=== PATIENT | male | born 1960 | race Caucasian/White ===

== ENCOUNTER 2016-12-13 10:58 | Inpatient (IN) | payer BC ==
[2016-12-13] MEDS ORDERED: NORMAL SALINE 1000 ML 1,000 ML IV ONE ×2 (11:24→12:51)
[2016-12-13] MEDS ORDERED: ONDANSETRON 4 MG TAB.RAPDIS PO ONE (11:24)
--- NOTE | 2016-12-13 11:28 | ER Document Report ---
ED Medical Screen (RME) - General Stated Complaint: STOMACH PAIN Mode of Arrival: Ambulatory Information source: Patient Notes: 56-year-old male presents to the emergency department complaining of nausea/ vomiting/diarrhea and generalized abdominal pain since yesterday evening. Denies measured temperature, blood in emesis or stool. I have greeted and performed a rapid initial assessment of this patient. A comprehensive ED assessment and evaluation of the patient, analysis of test results and completion of the medical decision making process will be conducted by additional ED providers. TRAVEL OUTSIDE OF THE [place] IN LAST 30 DAYS: No - Related Data Allergies/Adverse Reactions: No Known Allergies Allergy (Unverified 08/24/16 12:22) Past Medical History - Social History Frequency of alcohol use: Social Drug Abuse: None Renal/ Medical History: Denies: Hx Peritoneal Dialysis Past Surgical History: Reports: Hx Orthopedic Surgery - Chadwick Sx Physical Exam - Vital signs Vitals: Temp Pulse Resp BP Pulse Ox 99.1 F 131 H 16 101/60 96 12/13/16 11:19 12/13/16 11:19 12/13/16 11:19 12/13/16 11:19 12/13/16 11:19 - General General appearance: Alert In distress: None Course - Vital Signs Vital signs: Temp Pulse Resp BP Pulse Ox 99.1 F 131 H 16 101/60 96 12/13/16 11:19 12/13/16 11:19 12/13/16 11:19 12/13/16 11:19 12/13/16 11:19
[2016-12-13 11:58] LABS: HEMATOCRIT 41.4 % (37.9-51.0); HEMOGLOBIN 13.6 g/dL (13.5-17.0); HGB HCT DIFFERENCE -0.6; MEAN CORPUSCULAR HEMOGLOBIN 30.5 pg (27.0-33.4); MEAN CORPUSCULAR HGB CONC 32.9 g/dL (32.0-36.0); MEAN CORPUSCULAR VOLUME 93 fl (80-97); RED BLOOD COUNT 4.47 10^6/uL (4.35-5.55)
[2016-12-13 12:14] LABS: BAND NEUTROPHILS % (MANUAL) 6 % (3-5); BASOPHILS % (MANUAL) 0 % (0-2); EOSINOPHILS % (MANUAL) 0 % (0-6); LYMPHOCYTES % (MANUAL) 1 % (13-45); TOTAL CELLS COUNTED 100
[2016-12-13 12:15] LABS: RBC MORPHOLOGY COMMENT NORMO-CYTIC/CHROMIC; TOXIC GRANULATION SLIGHT
[2016-12-13 12:17] LABS: ALANINE AMINOTRANSFERASE 17 U/L (21-72); ALBUMIN 3.6 g/dL (3.5-5.0); ALKALINE PHOSPHATASE 110 U/L (38-126); ANION GAP 15 (5-19); ASPARTATE AMINO TRANSFERASE 22 U/L (17-59); BILIRUBIN,TOTAL 1.1 mg/dL (0.2-1.3); BLOOD UREA NITROGEN 26 mg/dL (7-20); CALCIUM 9.4 mg/dL (8.4-10.2); CARBON DIOXIDE 21 mmol/L (22-30); CHLORIDE 104 mmol/L (98-107); CREATININE RESULT 1.27 mg/dL (0.52-1.25); GLUCOSE 128 mg/dL (75-110); LIPASE 30.9 U/L (23-300); POTASSIUM 4.4 mmol/L (3.6-5.0); SODIUM 140.1 mmol/L (137-145); TOTAL PROTEIN 6.6 g/dL (6.3-8.2)
[2016-12-13 12:18] LABS: WHITE BLOOD COUNT 42.8 10^3/uL (4.0-10.5)
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
[2016-12-13] MEDS ORDERED: ONDANSETRON HCL INJ/PF 4 MG/2 ML SDV IV ONE ×2 (12:51→17:15)
[2016-12-13] MEDS ORDERED: NORMAL SALINE 1000 ML 3,000 ML IV ONE (14:57)
[2016-12-13] MEDS ORDERED: ACETAMINOPHEN 325 MG TABLET PO PRN (14:58)
[2016-12-13] MEDS ORDERED: ONDANSETRON HCL INJ/PF 4 MG/2 ML SDV IV PRN (14:58)
[2016-12-13] MEDS ORDERED: OXYCODONE-ACETAMINOPHEN 5-325 MG TABLET PO PRN (14:58)
[2016-12-13 15:37] LABS: MAGNESIUM 1.6 mg/dL (1.6-2.3); PHOSPHORUS 3.3 mg/dL (2.5-4.5)
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
[2016-12-13 15:38] LABS: PROTHROMBIN TIME 13.8 SEC (11.4-15.4)
[2016-12-13 15:45] LABS: APPEARANCE,URINE SLIGHTLY-CLOUDY; BILIRUBIN,URINE NEGATIVE (NEGATIVE); GLUCOSE, URINE NEGATIVE (NEGATIVE); KETONES,URINE NEGATIVE (NEGATIVE); LEUKOCYTE ESTERASE,URINE NEGATIVE (NEGATIVE); NITRITE,URINE NEGATIVE (NEGATIVE); PROTEIN,URINE 100 mg/dL (NEGATIVE); URINE SPECIFIC GRAVITY 1.023; UROBILINOGEN,URINE NEGATIVE mg/dL (<2.0)
[2016-12-13 16:02] LABS: URINE BARBITURATES SCREEN NEGATIVE; URINE METHADONE SCREEN NEGATIVE; URINE PHENCYCLIDINE SCREEN NEGATIVE
[2016-12-13] MEDS ORDERED: ONDANSETRON HCL INJ/PF 4 MG/2 ML SDV ONE (16:35)
[2016-12-13] MEDS ORDERED: MAG HYDROX/AL HYDROX/SIMETH SUSP 30 ML UDCUP PO ONE (17:00)
[2016-12-13] MEDS ORDERED: METOCLOPRAMIDE HCL ORAL SOLN 10 MG/10 ML UDCUP PO ONE (17:00)
[2016-12-13] MEDS ORDERED: LIDOCAINE 2% VISCOUS SOLN 20 ML UDCUP PO ONE (17:15)
[2016-12-13] MEDS: METRONIDAZOLE 500 MG/NS RTU 100 ML IV SCH (18:16)
[2016-12-13] MEDS: VANCOMYCIN HCL INJ 500 MG VIAL PO SCH (18:41)
[2016-12-13] MEDS: MAGNESIUM SULFATE/D5W 100 ML IV SCH ×2 (19:00→19:30)
[2016-12-13] MEDS: FAMOTIDINE 20 MG TABLET PO SCH (21:05)
[2016-12-14] MEDS: MAGNESIUM SULFATE/D5W 1 GM/100 ML RTUPB IV SCH ×2 (00:05→03:24)
[2016-12-14] MEDS ORDERED: VANCOMYCIN HCL INJ 500 MG VIAL ONE (01:54)
[2016-12-14] MEDS: VANCOMYCIN HCL INJ 500 MG VIAL PO SCH ×5 (02:11→23:26)
[2016-12-14] MEDS: METRONIDAZOLE 500 MG/NS RTU 100 ML IV SCH ×5 (02:12→23:26)
[2016-12-14 05:42] LABS: HEMATOCRIT 34.5 % (37.9-51.0); HGB HCT DIFFERENCE -1.2; MEAN CORPUSCULAR HEMOGLOBIN 30.2 pg (27.0-33.4); MEAN CORPUSCULAR HGB CONC 32.2 g/dL (32.0-36.0); MEAN CORPUSCULAR VOLUME 94 fl (80-97); RED BLOOD COUNT 3.68 10^6/uL (4.35-5.55); RED CELL DISTRIBUTION WIDTH 14.4 % (11.5-14.0); WHITE BLOOD COUNT 25.4 10^3/uL (4.0-10.5)
[2016-12-14 05:53] LABS: ANION GAP 14 (5-19); BLOOD UREA NITROGEN 19 mg/dL (7-20); CALCIUM 8.4 mg/dL (8.4-10.2); CARBON DIOXIDE 19 mmol/L (22-30); CHLORIDE 104 mmol/L (98-107); CREATININE RESULT 0.99 mg/dL (0.52-1.25); GLUCOSE 129 mg/dL (75-110); PHOSPHORUS 3.1 mg/dL (2.5-4.5); POTASSIUM 3.9 mmol/L (3.6-5.0); SODIUM 137.1 mmol/L (137-145)
[2016-12-14 06:18] LABS: BAND NEUTROPHILS % (MANUAL) 4 % (3-5); BASOPHILS % (MANUAL) 0 % (0-2); EOSINOPHILS % (MANUAL) 0 % (0-6); LYMPHOCYTES % (MANUAL) 4 % (13-45); TOTAL CELLS COUNTED 100
[2016-12-14 06:20] LABS: ANISOCYTOSIS SLIGHT; TOXIC GRANULATION SLIGHT; TOXIC VACUOLATION PRESENT
[2016-12-14 06:21] LABS: HEMOGLOBIN 11.1 g/dL (13.5-17.0)
[2016-12-14 08:59] LABS: FREE T3 2.9 pg/mL (2.77-5.27)
[2016-12-14] MEDS: FAMOTIDINE 20 MG TABLET PO SCH (09:39)
[2016-12-14] MEDS: ENOXAPARIN SODIUM INJ 40 MG/0.4 ML DISP.SYRIN SUBCUT SCH (09:39)
[2016-12-14] MEDS ORDERED: ALPRAZOLAM 0.25 MG TABLET PO PRN (11:22)
[2016-12-14] MEDS ORDERED: LANSOPRAZOLE 30 MG TAB.RAP.DR PO ONE ×2 (12:30→17:00)
[2016-12-14] MEDS ORDERED: MAG HYDROX/AL HYDROX/SIMETH SUSP 30 ML UDCUP PO ONE (13:00)
[2016-12-14] MEDS ORDERED: LIDOCAINE 2% VISCOUS SOLN 20 ML UDCUP PO ONE (13:00)
[2016-12-14] MEDS ORDERED: METOCLOPRAMIDE HCL ORAL SOLN 10 MG/10 ML UDCUP PO ONE (13:00)
[2016-12-14] MEDS ORDERED: FLUCONAZOLE 400 MG/NS RTU 200 ML IV ONE (14:08)
--- NOTE | 2016-12-14 14:27 | PDOC PROGRESS REPORT ---
Subjective Progress Note for:: 12/14/16 Subjective:: Patient complains of indigestion. He reports his appetite is still poor and that he still has nausea. Nursing reports patient has only had 1 stool since last night. Patient denies chest pain, shortness of breath, abdominal pain, vomiting, fevers, chills, constipation, headache, new onset weakness. Physical Exam Vital Signs: Temp Pulse Resp BP Pulse Ox 99.0 F 105 H 19 94/57 L 97 12/14/16 07:50 12/14/16 07:50 12/14/16 07:50 12/14/16 07:50 12/14/16 07:50 Intake & Output 12/13/16 12/14/16 12/15/16 06:59 06:59 06:59 Intake Total 834 Balance 834 Weight 81.2 kg Exam: General: Ill-appearing, Awake, alert, and oriented x3, no acute respiratory distress HEENT: AT/NC, PERRL, EOMI, oropharynx is moist, pink, no scleral icterus, no conjunctival injection Neck: No JVD, trachea midline Chest: Clear to auscultation bilaterally, no wheezes rhonchi or rales CV: Regular rate and rhythm, normal S1 and S2, no rub or gallop; 3/6 pansystolic murmur best heard over apex Abdomen: Soft, nontender to palpation, mildly distended, active bowel sounds; no rebound, rigidity, or guarding Extremities: No cyanosis, clubbing or edema Neuro: Cranial nerves II through XII are grossly intact without focal deficits; awake alert and oriented x3 Psych: Normal mood and affect Skin: No rashes or lesions Results Laboratory Results: 12/14/16 04:19 12/14/16 04:19 12/13/16 12/13/16 12/13/16 15:30 18:10 18:10 WBC RBC Hgb Hct MCV MCH MCHC RDW Plt Count Seg Neutrophils % Lymphocytes % Monocytes % Eosinophils % Basophils % Absolute Neutrophils Absolute Lymphocytes Absolute Monocytes Absolute Eosinophils Absolute Basophils Sodium Potassium Chloride Carbon Dioxide Anion Gap BUN Creatinine Est GFR ( Amer) Est GFR (Non-Af Amer) Glucose Lactic Acid Calcium Phosphorus Magnesium Free T4 Free T3 pg/mL Urine Color YELLOW Urine Appearance SLIGHTLY-CLOUDY Urine pH 5.0 Ur Specific [place] 1.023 Urine Protein 100 H Urine Glucose (UA) NEGATIVE Urine Ketones NEGATIVE Urine Blood NEGATIVE Urine Nitrite NEGATIVE Ur Leukocyte Esterase NEGATIVE Urine WBC (Auto) 3 Urine RBC (Auto) 1 Stool Occult Blood POSITIVE Stool for White Cells MANY H 12/13/16 12/14/16 12/14/16 18:15 04:19 04:19 WBC 25.4 H RBC 3.68 L Hgb 11.1 L D Hct 34.5 L MCV 94 MCH 30.2 MCHC 32.2 RDW 14.4 H Plt Count 175 Seg Neutrophils % Not Reportable Lymphocytes % Not Reportable Monocytes % Not Reportable Eosinophils % Not Reportable Basophils % Not Reportable Absolute Neutrophils Not Reportable Absolute Lymphocytes Not Reportable Absolute Monocytes Not Reportable Absolute Eosinophils Not Reportable Absolute Basophils Not Reportable Sodium 137.1 Potassium 3.9 Chloride 104 Carbon Dioxide 19 L Anion Gap 14 BUN 19 Creatinine 0.99 Est GFR ( Amer) > 60 Est GFR (Non-Af Amer) > 60 Glucose 129 H Lactic Acid 3.5 H Calcium 8.4 Phosphorus 3.1 Magnesium 2.0 Free T4 Free T3 pg/mL Urine Color Urine Appearance Urine pH Ur Specific [place] Urine Protein Urine Glucose (UA) Urine Ketones Urine Blood Urine Nitrite Ur Leukocyte Esterase Urine WBC (Auto) Urine RBC (Auto) Stool Occult Blood Stool for White Cells 12/14/16 04:19 WBC RBC Hgb Hct MCV MCH MCHC RDW Plt Count Seg Neutrophils % Lymphocytes % Monocytes % Eosinophils % Basophils % Absolute Neutrophils Absolute Lymphocytes Absolute Monocytes Absolute Eosinophils Absolute Basophils Sodium Potassium Chloride Carbon Dioxide Anion Gap BUN Creatinine Est GFR ( Amer) Est GFR (Non-Af Amer) Glucose Lactic Acid Calcium Phosphorus Magnesium Free T4 0.81 Free T3 pg/mL 2.90 Urine Color Urine Appearance Urine pH Ur Specific [place] Urine Protein Urine Glucose (UA) Urine Ketones Urine Blood Urine Nitrite Ur Leukocyte Esterase Urine WBC (Auto) Urine RBC (Auto) Stool Occult Blood Stool for White Cells 12/13/16 17:55 Sputum Gram Stain - Final 12/13/16 17:55 Sputum Sputum Culture - Final Impressions: Abdomen/Pelvis CT 12/13/16 00:00 IMPRESSION: 1. Findings suggesting colitis, particularly proximally. Infectious and inflammatory etiologies should be considered primarily. Assessment & Plan - Diagnosis (1) Severe sepsis Is this a current diagnosis for this admission?: YesPlan: Patient meets criteria for severe sepsis with his initial white count of 42.8, lactate of 2.7, and heart rate of 131. Patient has sepsis secondary to C. difficile colitis. (2) C. difficile colitis Is this a current diagnosis for this admission?: YesPlan: Continue patient on IV Flagyl and oral Vancocin. Patient meets criteria for dual antibiotic therapy secondary to severe sepsis. Advance diet as tolerated. (3) Prediabetes Is this a current diagnosis for this admission?: YesPlan: Hemoglobin A1c done was found to be 5.9. Patient in the prediabetic range. (4) MRSA osteomyelitis Is this a current diagnosis for this admission?: NoPlan: Patient has history of MRSA osteomyelitis and we have requested outside records. For this, he was on multiple courses of oral and IV antibiotics. Currently no signs of infection. - Time Time Spent with patient: 25-34 minutes Medications reviewed and adjusted accordingly: Yes
[2016-12-14] MEDS: LANSOPRAZOLE 30 MG TAB.RAP.DR PO SCH (17:13)
[2016-12-14] MEDS: LACTOBACILLUS ACIDOPHILUS 250 MG TAB PO SCH (17:13)
[2016-12-15] MEDS ORDERED: DILTIAZEM HCL/D5W 125 ML IV PRN (01:59)
[2016-12-15] MEDS ORDERED: DILTIAZEM HCL/D5W 125 MG/125 ML RTUINJ IV ONE (02:04)
[2016-12-15] MEDS ORDERED: DILTIAZEM HCL INJ 25 MG/5 ML VIAL ONE (02:04)
[2016-12-15 02:29] LABS: ANION GAP 8 (5-19); BLOOD UREA NITROGEN 14 mg/dL (7-20); CALCIUM 8.3 mg/dL (8.4-10.2); CARBON DIOXIDE 24 mmol/L (22-30); CHLORIDE 105 mmol/L (98-107); CREATININE RESULT 0.93 mg/dL (0.52-1.25); GLUCOSE 103 mg/dL (75-110); MAGNESIUM 1.7 mg/dL (1.6-2.3); POTASSIUM 3.6 mmol/L (3.6-5.0); SODIUM 136.6 mmol/L (137-145)
[2016-12-15] MEDS ORDERED: DILTIAZEM HCL INJ 25 MG/5 ML VIAL IV ONE (02:30)
[2016-12-15 02:45] LABS: CREATINE KINASE MB < 0.22 ng/mL (<4.55); TROPONIN I < 0.012 ng/mL
[2016-12-15 02:51] LABS: HEMATOCRIT 32.2 % (37.9-51.0); HEMOGLOBIN 10.7 g/dL (13.5-17.0); HGB HCT DIFFERENCE -0.1; MEAN CORPUSCULAR HEMOGLOBIN 30.8 pg (27.0-33.4); MEAN CORPUSCULAR HGB CONC 33.3 g/dL (32.0-36.0); MEAN CORPUSCULAR VOLUME 93 fl (80-97); RED BLOOD COUNT 3.48 10^6/uL (4.35-5.55); RED CELL DISTRIBUTION WIDTH 14.3 % (11.5-14.0); WHITE BLOOD COUNT 16.2 10^3/uL (4.0-10.5)
[2016-12-15 02:53] LABS: BAND NEUTROPHILS % (MANUAL) 1 % (3-5); BASOPHILS % (MANUAL) 0 % (0-2); EOSINOPHILS % (MANUAL) 1 % (0-6); LYMPHOCYTES % (MANUAL) 1 % (13-45); TOTAL CELLS COUNTED 100
[2016-12-15 02:56] LABS: ANISOCYTOSIS SLIGHT; OVALOCYTES SLIGHT; TOXIC GRANULATION SLIGHT; TOXIC VACUOLATION PRESENT
[2016-12-15] MEDS ORDERED: NORMAL SALINE 1000 ML 1,000 ML IV ONE (06:45)
[2016-12-15] MEDS: VANCOMYCIN HCL INJ 500 MG VIAL PO SCH ×4 (07:05→23:34)
[2016-12-15] MEDS: LANSOPRAZOLE 30 MG TAB.RAP.DR PO SCH (07:06)
[2016-12-15] MEDS: METRONIDAZOLE 500 MG/NS RTU 100 ML IV SCH ×4 (07:09→23:33)
--- NOTE | 2016-12-15 09:47 | PDOC PROGRESS REPORT ---
Subjective Progress Note for:: 12/15/16 Subjective:: Patient has no new complaints. He was noted by overnight physician Dr. Hernandez to go into atrial fibrillation with rapid ventricular response. He was started on Cardizem drip. He was also given 1 L of IV fluid bolus. He continues to be some slightly tachycardic. Patient states that he has a history of atrial fibrillation since having mitral valve repair and [place] years ago. He was on metoprolol for heart rate control but has not been taking this medication since moving to the area. He has also been on anticoagulation in the past but declines restarting this medication. He states that ultimately he was just placed on aspirin 81 mg daily by his grey goods tester in [place]. Patient denies fever, chills, headache, new focal weakness, chest pain, shortness of breath, abdominal pain, nausea, vomiting, diarrhea, constipation. Physical Exam Vital Signs: Temp Pulse Resp BP Pulse Ox 98.4 F 86 18 98/64 L 100 12/15/16 03:59 12/15/16 08:00 12/15/16 03:59 12/15/16 08:01 12/15/16 03:59 Intake & Output 12/14/16 12/15/16 12/16/16 06:59 06:59 06:59 Intake Total 834 2715 Balance 834 2715 Weight 81.2 kg 81.1 kg GENERAL: No acute distress HEENT: Conjunctiva clear, nonicteric, moist mucous membranes, no JVD, midline trachea RESPIRATORY: Clear to auscultation bilaterally, no wheezes, no rhonchi CARDIAC: Irregular/tachycardic ABDOMEN: Soft, nondistended, nontender, positive bowel sounds, no rebound, no guarding EXTREMETIES: No edema, cyanosis, clubbing NEUROLOGIC: Alert, oriented to person/place/time, CN's grossly intact, no focal deficits SKIN: No rash, wounds PSYCH: Normal mood, normal affect Results Laboratory Results: 12/15/16 02:08 12/15/16 02:08 12/15/16 12/15/16 02:08 02:08 WBC 16.2 H RBC 3.48 L Hgb 10.7 L Hct 32.2 L MCV 93 MCH 30.8 MCHC 33.3 RDW 14.3 H Plt Count 157 Seg Neutrophils % Not Reportable Lymphocytes % Not Reportable Monocytes % Not Reportable Eosinophils % Not Reportable Basophils % Not Reportable Absolute Neutrophils Not Reportable Absolute Lymphocytes Not Reportable Absolute Monocytes Not Reportable Absolute Eosinophils Not Reportable Absolute Basophils Not Reportable Sodium 136.6 L Potassium 3.6 Chloride 105 Carbon Dioxide 24 Anion Gap 8 BUN 14 Creatinine 0.93 Est GFR ( Amer) > 60 Est GFR (Non-Af Amer) > 60 Glucose 103 Calcium 8.3 L Magnesium 1.7 12/13/16 17:55 Sputum Gram Stain - Final 12/13/16 17:55 Sputum Sputum Culture - Final 12/15/16 12/15/16 02:08 02:08 Creatine Kinase < 20 L CK-MB (CK-2) < 0.22 Troponin I < 0.012 Impressions: Abdomen/Pelvis CT 12/13/16 00:00 IMPRESSION: 1. Findings suggesting colitis, particularly proximally. Infectious and inflammatory etiologies should be considered primarily. Assessment & Plan - Diagnosis (1) Severe sepsis Is this a current diagnosis for this admission?: YesPlan: Secondary to C. difficile colitis. White blood count improving. Patient's afebrile. (2) C. difficile colitis Is this a current diagnosis for this admission?: YesPlan: Continue oral vancomycin and IV Flagyl for now. (3) Atrial fibrillation with rapid ventricular response Is this a current diagnosis for this admission?: YesPlan: Patient states that he has a history of atrial fibrillation since having mitral valve repair and [place] years ago. He was on metoprolol for heart rate control but has not been taking this medication since moving to the area. He has also been on anticoagulation in the past but declines restarting this medication. He states that ultimately he was just placed on aspirin 81 mg daily by his grey goods tester in [place]. Start Toprol-XL 50 mg daily. Wean off Cardizem drip as tolerated. Consult cardiology. Repeat EKG in the morning. Continue to monitor on telemetry. Start aspirin 81 mg daily. Patient declines anticoagulation and I don't think for anticoagulation would be a good idea at this time given active colitis. (4) MRSA osteomyelitis Is this a current diagnosis for this admission?: YesPlan: This is been treated. Likely antibiotics used to treat this in October were associated with current C. difficile colitis. - Time Time Spent with patient: 35 or more minutes Anticipated discharge: Home - Inpatient Certification Medical Necessity: Need For Continuous Telemetry Monitoring, Need for IV Antibiotics
[2016-12-15] MEDS: ASPIRIN 81 MG TABLET, ENT COATED PO SCH (10:50)
[2016-12-15] MEDS: METOPROLOL SUCCINATE 50 MG TAB.SR.24H PO SCH (10:50)
[2016-12-15] MEDS: ENOXAPARIN SODIUM INJ 40 MG/0.4 ML DISP.SYRIN SUBCUT SCH (10:50)
[2016-12-15] MEDS: LACTOBACILLUS ACIDOPHILUS 250 MG TAB PO SCH ×2 (10:50→17:38)
--- NOTE | 2016-12-15 11:44 | EKG REPORT ---
SEVERITY:- ABNORMAL ECG - ATRIAL FIBRILLATION, V-RATE [id number] : Confirmed by: Kendal Jarrell MD 15-Dec-2016 11:44:20
--- NOTE | 2016-12-15 12:55 | PDOC CONSULTATION ---
Consultation Consult Date: 12/15/16 Attending physician:: PO LOWE Consult reason:: Atrial fibrillation, history of valvular heart disease History of Present Illness Admission Date/PCP: 12/13/16 14:58 History of Present Illness: SOHAIL PATTEN is a 56 year old male who presents to the emergency department with general feelings of malaise. He reports that approximately 4 weeks ago the week before [place] he began having diarrhea. He scheduled for a colonoscopy. He reports over the last week worsening with subjective fever and chills. He has had a slight cough which is nonproductive of any sputum and some clear to white sinus drainage. Patient has a history of MRSA infection of the leg which he was on antibiotics for until the first week of October. These included Cipro, Bactrim, and amoxicillin. Patient reports that he's been having 3-4 bowel movements daily but had some return to normalcy with while on antibiotics which included he believed both Cipro and Flagyl. He reports that he has foul-smelling stools that are nonbloody but had some streaking from a hemorrhoid. He reports significant nausea and vomiting today. He is referred to this hospital service for SIRS and colitis. While being in the hospital he was noted to have atrial fibrillation with somewhat rapid ventricular response and one 4 beat run of wide-complex tachycardia. Patient gives history of paroxysmal atrial fibrillation. He also gives history of valvular heart disease having had a mitral valve ring repair approximately 2 years ago. Past Medical History Cardiac Medical History: Reports: Heart Murmur Psychiatric Medical History: Denies: Depression Infectious Medical History: Reports: Methicillin-Resistant Staph Aureus Past Surgical History Past Surgical History: Reports: Orthopedic Surgery - [place] Sx, Other - Mitral valve repair, with ring annuloplasty Social History Lives with: Family Smoking Status: Current Some Day Smoker Frequency of Alcohol Use: Occasional Hx Recreational Drug Use: No Drugs: None Hx Prescription Drug Abuse: No - Advance Directive Resuscitation Status: Full Code Family History Family History: Reviewed & Not Pertinent Parental Family History Reviewed: Yes Children Family History Reviewed: Yes Sibling(s) Family History Reviewed.: Yes - Negative for premature coronary artery disease or sudden cardiac in the family amongst first degree relatives. Medication/Allergy Home Medications: Acetaminophen [Tylenol 325 mg Tablet] 650 mg PO Q4HP PRN tablet 12/16/16 Aspirin [Ecotrin 81 mg EC Tablet] 81 mg PO DAILY tabec 12/16/16 Metoprolol Succinate [Toprol Xl 50 mg Tab.sr] 50 mg PO DAILY #30 tab.sr.24h Multivitamin W/Iron, Minerals [Compete] 1 each PO DAILY #30 tablet 12/16/16 Vancomycin HCl 250 mg PO Q6H #56 capsule 12/16/16 Allergies/Adverse Reactions: No Known Allergies Allergy (Unverified 08/24/16 12:22) Review of Systems Review of Systems: Please see history of present illness and past medical history as wall. Constitutional: Low-grade fever, fatigue and tiredness reported Head : No recent chronic headaches, recent head injury. Eyes: No recent eye pain, diplopia, redness, discharge, acute visual changes. Ears: No recent chronic ear pain, acute hearing loss, ear discharge. Oral cavity: No recent ulcerations, bleeding, oral cavity discomfort. Neck: No recent acute neck pain reported. Hematologic: No recent easy bruising or bleeding or hematologic malignancy reported. Lymphatic: No recent lymphatic malignancy, chronic lymphadenopathy reported yet Cardiovascular system review: See history of present illness. Respiratory system review: No recent chronic cough, hemoptysis, blood clots in the lungs reported. Mild Shortness of breath on exertion Gastrointestinal system review: Negative for any recent acute or chronic abdominal pain, hematemesis, melena, noted chronic diarrhea. Genitourinary system review: No recent acute or chronic hematuria, flank pain, UTI etc. reported. Skin system review: Negative for any recent abnormal bruising, no rash, no pruritus reported. Neurologic: No prior history of strokes, mini strokes, seizure disorder. Psychologic: No history of major psychosis or depression reported. Musculoskeletal: Minor aches and pains reported. No acute joint swelling reported. Endocrine: No recent polyuria, polydipsia, recent heat or cold intolerance. Physical Exam Vital Signs: Temp Pulse Resp BP Pulse Ox 98.5 F 75 20 95/59 L 97 12/15/16 11:33 12/15/16 11:33 12/15/16 11:33 12/15/16 11:01 12/15/16 11:33 Intake & Output 12/14/16 12/15/16 12/16/16 06:59 06:59 06:59 Intake Total 834 2715 Balance 834 2715 Weight 81.2 kg 81.1 kg Exam: GENERAL: well-nourished and in no acute distress. Alert and oriented x3 HEAD: Atraumatic, normocephalic. EYES: Pupils equal round and reactive to light, extraocular movements intact, sclera anicteric, conjunctiva are normal. ENT: TMs normal, nares patent, oropharynx clear without exudates. Moist mucous membranes. No oral ulcerations or bleeding gums noted NECK: supple without lymphadenopathy. Trachea is central. No cervical or axillary lymphadenopathy noted. Carotids are 2+, JVD WNL LUNGS: Respiration seems nonlabored, no significant accessory muscle action noted. Breath sounds clear to auscultation bilaterally and equal. No wheezes rales or rhonchi. No significant dullness noted on percussion. CHEST: Palpation of the chest wall shows no significant chest wall tenderness or abnormalities. HEART: [place] MD ALLERGY IMMUNOLOGY, No PSH, 1/6 HUSSAIN aortic area, 1/6 cat systolic murmur mitral area, no rubs, no gallops. ABDOMEN: Soft, no significant tenderness appreciated, normoactive bowel sounds. No guarding, no rebound. No rigidity noted . No masses appreciated. EXTREMITIES: Pedal pulses are 1-2+, no calf tenderness noted. No clubbing or cyanosis.trace pedal edema noted. A scar of multiple surgeries noted on the left lower extremity. NEUROLOGICAL: Focused neurological exam showed no significant neurologic deficit. Normal speech, no focal weakness appreciated. PSYCH: Normal mood, normal affect. Judgment and insight within normal limits. SKIN: No significant ecchymosis, rash, ulcerations or signs of pruritus noted. MUSCULOSKELETAL EXAM: No significant joint swelling noted. Results Laboratory Results: 12/15/16 02:08 12/15/16 02:08 12/15/16 12/15/16 02:08 02:08 WBC 16.2 H RBC 3.48 L Hgb 10.7 L Hct 32.2 L MCV 93 MCH 30.8 MCHC 33.3 RDW 14.3 H Plt Count 157 Seg Neutrophils % Not Reportable Lymphocytes % Not Reportable Monocytes % Not Reportable Eosinophils % Not Reportable Basophils % Not Reportable Absolute Neutrophils Not Reportable Absolute Lymphocytes Not Reportable Absolute Monocytes Not Reportable Absolute Eosinophils Not Reportable Absolute Basophils Not Reportable Sodium 136.6 L Potassium 3.6 Chloride 105 Carbon Dioxide 24 Anion Gap 8 BUN 14 Creatinine 0.93 Est GFR ( Amer) > 60 Est GFR (Non-Af Amer) > 60 Glucose 103 Calcium 8.3 L Magnesium 1.7 12/13/16 17:55 Sputum Gram Stain - Final 12/13/16 17:55 Sputum Sputum Culture - Final 12/15/16 12/15/16 02:08 02:08 Creatine Kinase < 20 L CK-MB (CK-2) < 0.22 Troponin I < 0.012 EKG Comments: EKG obtained earlier this morning shows atrial fibrillation but on rhythm strip this morning he was noted to be back in sinus rhythm Impressions: Abdomen/Pelvis CT 12/13/16 00:00 IMPRESSION: 1. Findings suggesting colitis, particularly proximally. Infectious and inflammatory etiologies should be considered primarily. Assessment & Plan - Diagnosis (1) Atrial fibrillation with rapid ventricular response Is this a current diagnosis for this admission?: YesPlan: Currently patient in sinus rhythm. Patient has history of valvular heart disease. Patient has been recommended to chronic anticoagulation but she declines to pursue it. Precipitating cause of atrial fibrillation probably sepsis, underlying sleep apnea syndrome etc. Patient does give history of paroxysmal atrial fibrillation in the past. At this point agree with Cardizem therapy. (2) C. difficile colitis Is this a current diagnosis for this admission?: YesPlan: Continue therapy for C. difficile colitis as you were doing (3) History of mitral valve repair Is this a current diagnosis for this admission?: YesPlan: Patient had annuloplasty ring repair of the mitral valve. In view of paroxysmal atrial fibrillation would repeat a 2-D echocardiogram (4) Systemic inflammatory response syndrome Is this a current diagnosis for this admission?: YesPlan: Most likely related to C. difficile colitis. This is improving. (5) Sleep disorder breathing Is this a current diagnosis for this admission?: YesPlan: Patient gives history of snoring. In view of paroxysmal atrial fibrillation, I have recommended a sleep study. This can be performed as an outpatient. (6) Mitral valve disorder Is this a current diagnosis for this admission?: YesPlan: This is strongly suspected based on development of paroxysmal atrial fibrillation. We will order an echocardiogram and look for any mitral stenosis or mitral regurgitation as cause of atrial fibrillation. Patient is status post mitral valve ring repair. - Notes Notes: CODE STATUS was discussed, patient remains full code. Surrogate decision-maker patient's . Multiple medical problems were addressed. - Time Time Spent: 30 to 50 Minutes - More than 50% of the time spent coordinating care , discussing management plans with involved caregivers. Management plans discussed with involved personnels. Medical decision making was of moderate complexity. Medications reviewed and adjusted accordingly: Yes
--- NOTE | 2016-12-15 20:15 | XCELERA REPORT ---
[address] [address] Transthoracic Echocardiogram Report Name: SOHAIL PATTEN Age: 56 yrs Gender: Male : 1960 Patient Status: Inpatient Patient Location: [id number]\S\322\S\A Study Date: 12/15/2016 01:32 PM Height: 69 in Weight: 178 lb BSA: 2.0 m2 Procedure: A complete two-dimensional transthoracic echocardiogram was performed (2D, M-mode, spectral and color flow Doppler). The study was technically difficult with many images being suboptimal in quality. Reason For Study: atrial fibrillation Ordering Physician: ELIZA JAVIER Performed By: Khalida Wellington Interpretation Summary The left ventricular ejection fraction is normal. Doppler measurements suggest pseudonormalized left ventricular relaxation, which is associated with grade II/IV or mild to moderate diastolic dysfunction There is normal left ventricular wall thickness. The left ventricle is grossly normal size. Regional wall motion abnormalities cannot be excluded due to limited visualization. The right ventricular systolic function is normal. The right atrium is normal. The left atrial size is normal. There is a trace amount of mitral regurgitation An annuloplasty ring is noted in the mitral position. There is a trace amount of aortic regurgitation There is no aortic valve stenosis There is a trace or physiologic amount of tricuspid regurgitation Tricuspid regurgitation jet envelope not well defined to measure RV systolic pressure accurately. There is no tricuspid stenosis. There is no pericardial effusion. MMode/2D Measurements \T\ Calculations RVDd: 3.0 cm LVIDd: 4.5 cm FS: 34.8 % Ao root diam: 3.3 cm IVSd: 0.93 cm LVIDs: 2.9 cm EDV(Teich): 92.5 ml LVPWd: 0.93 cmESV(Teich): 33.2 ml Ao root area: 8.6 cm2 EF(Teich): 64.1 % LA dimension: 4.4 cm LVOT diam: 2.1 cm LVOT area: 3.4 cm2 Doppler Measurements \T\ Calculations MV E max charles: MV P1/2t max charles: Ao V2 max: LV V1 max P.8 cm/sec 172.1 cm/sec 123.8 cm/sec 4.9 mmHg MV A max charles: MV P1/2t: 50.4 msec Ao max PG: LV V1 max: 97.5 cm/sec MVA(P1/2t): 4.4 cm2 6.1 mmHg 111.1 cm/sec MV E/A: 1.8 MV dec slope: RAMSES(V,D): 3.0 cm2 1001 cm/sec2 MV dec time: 0.19 sec PA V2 max: TR max charles: 106.6 cm/sec 243.2 cm/sec PA max P.5 mmHgTR max P.7 mmHg Left Ventricle The left ventricle is grossly normal size. There is normal left ventricular wall thickness. The left ventricular ejection fraction is normal. Doppler measurements suggest pseudonormalized left ventricular relaxation, which is associated with grade II/IV or mild to moderate diastolic dysfunction. Regional wall motion abnormalities cannot be excluded due to limited visualization. Right Ventricle The right ventricle is grossly normal size. There is normal right ventricular wall thickness. The right ventricular systolic function is normal. Atria The right atrium is normal. The left atrial size is normal. Interarterial septum not well visualized and not well dopplered. Cannot comment on ASD/PFO presence. Mitral Valve There is mild mitral annular calcification. There is no mitral valve stenosis. There is a trace amount of mitral regurgitation. An annuloplasty ring is noted in the mitral position. Aortic Valve The aortic valve is grossly normal. There is no aortic valve stenosis. There is a trace amount of aortic regurgitation. Tricuspid Valve The tricuspid valve is not well visualized, but is grossly normal. There is no tricuspid stenosis. There is a trace or physiologic amount of tricuspid regurgitation. Tricuspid regurgitation jet envelope not well defined to measure RV systolic pressure accurately. Pulmonic Valve The pulmonic valve is not well visualized. Great Vessels The aortic root is not well visualized but is probably normal size. The inferior vena cava appeared normal and decreased > 50% with respiration (RAP 5-10 mmHg). Effusions There is no pericardial effusion. : ELIZA JAVIER > Eliza Javier
[2016-12-16 05:52] LABS: ABSOLUTE EOSINOPHILS # (AUTO) 0.1 10^3/uL (0.0-0.6); ABSOLUTE LYMPHOCYTES (AUTO) 0.7 10^3/uL (0.5-4.7); ABSOLUTE MONOCYTES (AUTO) 0.6 10^3/uL (0.1-1.4); ABSOLUTE NEUT (AUTO) 6.4 10^3/uL (1.7-8.2); BASOPHILS % (AUTO) 0.3 % (0-2); EOSINOPHILS % (AUTO) 1.8 % (0-6); HEMOGLOBIN 9.9 g/dL (13.5-17.0); HGB HCT DIFFERENCE -0.3; LYMPHOCYTES % (AUTO) 8.8 % (13-45); MEAN CORPUSCULAR HEMOGLOBIN 30.8 pg (27.0-33.4); MEAN CORPUSCULAR HGB CONC 32.9 g/dL (32.0-36.0); MEAN CORPUSCULAR VOLUME 94 fl (80-97); RED CELL DISTRIBUTION WIDTH 14.1 % (11.5-14.0); SEGMENTED NEUTROPHILS % (AUTO) 81.1 % (42-78); WHITE BLOOD COUNT 7.9 10^3/uL (4.0-10.5)
[2016-12-16] MEDS: VANCOMYCIN HCL INJ 500 MG VIAL PO SCH ×2 (05:55→11:06)
[2016-12-16] MEDS: METRONIDAZOLE 500 MG/NS RTU 100 ML IV SCH ×2 (05:55→11:07)
[2016-12-16] MEDS ORDERED: LANSOPRAZOLE 30 MG TAB.RAP.DR PO SCH (06:00)
[2016-12-16 06:11] LABS: ANION GAP 9 (5-19); BLOOD UREA NITROGEN 14 mg/dL (7-20); CALCIUM 8.7 mg/dL (8.4-10.2); CARBON DIOXIDE 24 mmol/L (22-30); CHLORIDE 108 mmol/L (98-107); GLUCOSE 93 mg/dL (75-110); POTASSIUM 3.7 mmol/L (3.6-5.0); SODIUM 141.4 mmol/L (137-145)
[2016-12-16] MEDS: LACTOBACILLUS ACIDOPHILUS 250 MG TAB PO SCH (09:10)
[2016-12-16] MEDS: ASPIRIN 81 MG TABLET, ENT COATED PO SCH (09:13)
[2016-12-16] MEDS: METOPROLOL SUCCINATE 50 MG TAB.SR.24H PO SCH (09:14)
[2016-12-16] MEDS ORDERED: FERROUS SULFATE 325 MG TABLET PO SCH (10:00)
[2016-12-16 10:28] VITALS: BP 84/46
--- NOTE | 2016-12-16 11:09 | PDOC PROGRESS REPORT ---
Subjective Progress Note for:: 12/16/16 Subjective:: Patient seems to be doing better with gradual improvement. Pt is denying any chest arm or neck discomfort. Patient denying any PND, orthopnea. Patient denied any sustained palpitations, dizziness, syncope, near syncope. Patient denying any fever chills. Patient denying any other significant discomfort. Patient is maintaining sinus rhythm. Review of systems: Rest review of systems negative. Medications: Medications have been reviewed. Physical Exam Vital Signs: Temp Pulse Resp BP Pulse Ox 97.6 F 71 18 84/46 L 98 12/16/16 10:21 12/16/16 10:21 12/16/16 10:21 12/16/16 10:21 12/16/16 10:21 Intake & Output 12/15/16 12/16/16 12/17/16 06:59 06:59 06:59 Intake Total 2715 2421 Output Total 360 Balance 2715 2061 Weight 81.1 kg 82.1 kg Exam: GENERAL: well-nourished and in no acute distress. Alert and oriented x3 HEAD: Atraumatic, normocephalic. EYES: Pupils equal round and reactive to light, extraocular movements intact, sclera anicteric, conjunctiva are normal. ENT: TMs normal, nares patent, oropharynx clear without exudates. Moist mucous membranes. No oral ulcerations or bleeding gums noted NECK: supple without lymphadenopathy. Trachea is central. No cervical or axillary lymphadenopathy noted. Carotids are 2+, JVD WNL LUNGS: Respiration seems nonlabored, no significant accessory muscle action noted. Breath sounds clear to auscultation bilaterally and equal. No wheezes rales or rhonchi. No significant dullness noted on percussion. CHEST: Palpation of the chest wall shows no significant chest wall tenderness or abnormalities. HEART: [place] [employer], No PSH, 1/6 HUSSAIN aortic area, 1/6 cat systolic murmur mitral area, no rubs, no gallops. ABDOMEN: Soft, no significant tenderness appreciated, normoactive bowel sounds. No guarding, no rebound. No rigidity noted . No masses appreciated. EXTREMITIES: Pedal pulses are 1-2+, no calf tenderness noted. No clubbing or cyanosis.trace pedal edema noted. A scar of multiple surgeries noted on the left lower extremity. NEUROLOGICAL: Focused neurological exam showed no significant neurologic deficit. Normal speech, no focal weakness appreciated. PSYCH: Normal mood, normal affect. Judgment and insight within normal limits. SKIN: No significant ecchymosis, rash, ulcerations or signs of pruritus noted. MUSCULOSKELETAL EXAM: No significant joint swelling noted. Results Laboratory Results: 12/16/16 05:05 12/16/16 05:05 12/16/16 12/16/16 05:05 05:05 WBC 7.9 RBC 3.20 L Hgb 9.9 L Hct 30.0 L MCV 94 MCH 30.8 MCHC 32.9 RDW 14.1 H Plt Count 157 Seg Neutrophils % 81.1 H Lymphocytes % 8.8 L Monocytes % 8.0 Eosinophils % 1.8 Basophils % 0.3 Absolute Neutrophils 6.4 Absolute Lymphocytes 0.7 Absolute Monocytes 0.6 Absolute Eosinophils 0.1 Absolute Basophils 0.0 Sodium 141.4 Potassium 3.7 Chloride 108 H Carbon Dioxide 24 Anion Gap 9 BUN 14 Creatinine 0.90 Est GFR ( Amer) > 60 Est GFR (Non-Af Amer) > 60 Glucose 93 Calcium 8.7 12/13/16 18:10 Stool - Stool - Final 12/13/16 18:10 Stool - Stool Stool Culture - Final C.albicans/C.dubliniensis 12/15/16 12/15/16 02:08 02:08 Creatine Kinase < 20 L CK-MB (CK-2) < 0.22 Troponin I < 0.012 Impressions: Abdomen/Pelvis CT 12/13/16 00:00 IMPRESSION: 1. Findings suggesting colitis, particularly proximally. Infectious and inflammatory etiologies should be considered primarily. Assessment & Plan - Diagnosis (1) Atrial fibrillation with rapid ventricular response Is this a current diagnosis for this admission?: Yes (2) C. difficile colitis Is this a current diagnosis for this admission?: Yes (3) History of mitral valve repair Is this a current diagnosis for this admission?: Yes (4) Systemic inflammatory response syndrome Is this a current diagnosis for this admission?: Yes (5) Sleep disorder breathing Is this a current diagnosis for this admission?: Yes - Notes Notes: Atrial fibrillation, paroxysmal: Currently patient has been in sinus rhythm. Patient declines to undergo chronic anticoagulation. Patient to continue current regimen for rate control. Patient advised to undergo a sleep study to prevent recurrence of atrial fibrillation. C. difficile colitis: Improved. Valvular heart disease: Patient status post mitral valve ring repair and annuloplasty repair. Seems to be functioning normally based on recent echocardiogram. Systemic inflammatory response syndrome: Currently stable and improving. Sleep disorder breathing: Patient advised to have a sleep study. - Time Time with patient: 15-25 minutes - CODE STATUS was discussed, patient remains full code. Surrogate decision-maker unchanged. Multiple medical problems were addressed.More than 50% of the time spent coordinating care, discussing management plans with involved caregivers. Management plans discussed with involved personnels. Medical decision making was of moderate complexity.
--- NOTE | 2016-12-16 13:23 | PDOC DISCHARGE SUMMARY ---
General - Admit/Disc Date/PCP Admission Date/Primary Care Provider: 12/13/16 14:58 Discharge Date: 12/16/16 - Discharge Diagnosis (1) Severe sepsis Is this a current diagnosis for this admission?: Yes (2) C. difficile colitis Is this a current diagnosis for this admission?: Yes (3) Atrial fibrillation with rapid ventricular response Is this a current diagnosis for this admission?: Yes (4) MRSA osteomyelitis Is this a current diagnosis for this admission?: Yes (5) History of mitral valve repair Is this a current diagnosis for this admission?: Yes (6) Anemia Is this a current diagnosis for this admission?: Yes - Additional Information Resuscitation Status: Full Code Discharge Diet: Cardiac Discharge Activity: Activity As Tolerated Home Medications: Acetaminophen [Tylenol 325 mg Tablet] 650 mg PO Q4HP PRN tablet 12/16/16 Aspirin [Ecotrin 81 mg EC Tablet] 81 mg PO DAILY tabec 12/16/16 Metoprolol Succinate [Toprol Xl 50 mg Tab.sr] 50 mg PO DAILY #30 tab.sr.24h Multivitamin W/Iron, Minerals [Compete] 1 each PO DAILY #30 tablet 12/16/16 Vancomycin HCl 250 mg PO Q6H #56 capsule 12/16/16 History of Present Illness Patient complains of: Abdominal pain History of Present Illness: SOHAIL PATTEN is a 56 year old male who presents to the emergency department with general feelings of malaise. He reports that approximately 4 weeks ago the week before he began having diarrhea. He scheduled for a colonoscopy on 313. He reports over the last week worsening with subjective fever and chills. He has had a slight cough which is nonproductive of any sputum and some clear to white sinus drainage. Patient has a history of MRSA infection of the leg which he was on antibiotics for until the first week of October. These included Cipro, Bactrim, and amoxicillin. Patient reports that he's been having 3-4 bowel movements daily but had some return to normalcy with while on antibiotics which included he believed both Cipro and Flagyl. He reports that he has foul-smelling stools that are nonbloody but had some streaking from a hemorrhoid. He reports significant nausea and vomiting today. He is referred to this hospital service for SIRS and colitis. Hospital Course Hospital Course: Patient was admitted and diagnosed with C. difficile colitis. He was initially treated with oral vancomycin and IV metronidazole. Sepsis improved pretty quickly and patient was clinically stable at time of discharge. He is discharged on oral vancomycin 14 days. From a cardiac standpoint patient has chronic untreated atrial fibrillation. He has not seen a doctor since moving to the area from [place]. He has historically declined anticoagulation and continues to decline anticoagulation. He was seen by Dr. Zuniga of cardiology while in the hospital. He has been placed on Toprol-XL for heart rate control and is under good heart rate control. He is on low-dose aspirin. Patient has anemia associated with acute blood loss from colitis. He is advised to take iron supplementation but chooses to take a multivitamin iron instead. He will need to have follow-up CBC. Physical Exam Vital Signs: Temp Pulse Resp BP Pulse Ox 97.6 F 71 18 84/46 L 98 12/16/16 10:21 12/16/16 10:21 12/16/16 10:21 12/16/16 10:21 12/16/16 10:21 Intake & Output 12/15/16 12/16/16 12/17/16 06:59 06:59 06:59 Intake Total 2715 2421 Output Total 360 Balance 2715 2061 Weight 81.1 kg 82.1 kg GENERAL: No acute distress HEENT: Conjunctiva clear, nonicteric, moist mucous membranes, no JVD, midline trachea RESPIRATORY: Clear to auscultation bilaterally, no wheezes, no rhonchi CARDIAC: Regular rate and rhythm, no murmurs/gallops/rubs ABDOMEN: Soft, nondistended, nontender, positive bowel sounds, no rebound, no guarding EXTREMETIES: No edema, cyanosis, clubbing NEUROLOGIC: Alert, oriented to person/place/time, CN's grossly intact, no focal deficits SKIN: Prior sternotomy PSYCH: Normal mood, normal affect Results Laboratory Results: 12/16/16 05:05 12/16/16 05:05 12/16/16 12/16/16 05:05 05:05 WBC 7.9 RBC 3.20 L Hgb 9.9 L Hct 30.0 L MCV 94 MCH 30.8 MCHC 32.9 RDW 14.1 H Plt Count 157 Seg Neutrophils % 81.1 H Lymphocytes % 8.8 L Monocytes % 8.0 Eosinophils % 1.8 Basophils % 0.3 Absolute Neutrophils 6.4 Absolute Lymphocytes 0.7 Absolute Monocytes 0.6 Absolute Eosinophils 0.1 Absolute Basophils 0.0 Sodium 141.4 Potassium 3.7 Chloride 108 H Carbon Dioxide 24 Anion Gap 9 BUN 14 Creatinine 0.90 Est GFR ( Amer) > 60 Est GFR (Non-Af Amer) > 60 Glucose 93 Calcium 8.7 12/13/16 18:10 Stool - Stool - Final 12/13/16 18:10 Stool - Stool Stool Culture - Final C.albicans/C.dubliniensis 12/15/16 12/15/16 02:08 02:08 Creatine Kinase < 20 L CK-MB (CK-2) < 0.22 Troponin I < 0.012 Impressions: Abdomen/Pelvis CT 12/13/16 00:00 IMPRESSION: 1. Findings suggesting colitis, particularly proximally. Infectious and inflammatory etiologies should be considered primarily. Qualifiers PATEINT BEING DISCHARGED WITH ANY OF THE FOLLOWING DIAGNOSIS?: No Plan Discharge Plan: Follow-up with Dr. Fall to establish primary care. Follow-up with Dr. Zuniga of cardiology. Time Spent: Less than 30 Minutes
--- NOTE | 2016-12-16 14:56 | EKG REPORT ---
SEVERITY:- BORDERLINE ECG - SINUS RHYTHM BORDERLINE T ABNORMALITIES, ANT-LAT LEADS : Confirmed by: Kendal Jarrell MD 16-Dec-2016 14:55:21
== END 2016-12-16 11:05 | disposition home or self-care (01) | DRG 872 ==
LOC: ER 10:58 → EH 14:58 → UNDOADMIN 15:28 → 3W 12-14 01:23
PROVIDERS: ADMIT Family Medicine; ATTEND Family Medicine
DX: A41.9 Sepsis, unspecified organism (principal); A04.7 Enterocolitis due to Clostridium difficile; M86.9 Osteomyelitis, unspecified; D62 Acute posthemorrhagic anemia; R65.20 Severe sepsis without septic shock; B95.62 Methicillin resistant Staphylococcus aureus infection as the cause of diseases classified elsewhere; I48.0 Paroxysmal atrial fibrillation; F17.210 Nicotine dependence, cigarettes, uncomplicated; R73.03 Prediabetes; F17.290 Nicotine dependence, other tobacco product, uncomplicated; Z79.899 Other long term (current) drug therapy; Z86.14 Personal history of Methicillin resistant Staphylococcus aureus infection; Z95.2 Presence of prosthetic heart valve; Z82.49 Family history of ischemic heart disease and other diseases of the circulatory system; Z84.1 Family history of disorders of kidney and ureter
CPT/HCPCS: 36415; 74177; 80048; 80053; 80307; 81001; 82272; 82550; 82553; 83036; 83605; 83690; 83735; 84100; 84439; 84443; 84481; 84484; 85025; 85610; 85730; 87040; 87045; 87070; 87075; 87205; 87493; 87804; 89055; 93005; 93010; 93306; 96361; 96374; 99285; J1650; J2405; J3370; J3475; J3490; J7030; S0119

== ENCOUNTER → 2017-05-27 | Outpatient (CLI) | payer BC ==
--- NOTE | 2017-05-27 09:09 | RADIOLOGY REPORT (SQ) ---
EXAM DESCRIPTION: U/S ABDOMEN LIMITED W/O DOP COMPLETED DATE/TIME: 05/27/2017 8:27 am REASON FOR STUDY: ABN LFT (R94.5), ABN FINDINGS ON DX IMAGING OF OTHER PARTSOF DIGESTIVE TRAC R94.5 ABNORMAL RESULTS OF LIVER FUNCTION STUDIES R93.3 ABNORMAL FINDINGS ON DX IMAGING OF PRT DIGESTIVE T RACT COMPARISON: CT abdomen pelvis 12/13/2016 TECHNIQUE: Dynamic and static grayscale images acquired of the abdomen and recorded on PACS. Additio nal selected color Doppler and spectral images recorded. LIMITATIONS: None. FINDINGS: PANCREAS: Midline pancreas unremarkable LIVER: No masses. Echotexture normal. LIVER VASCULATURE: Normal directional flow of the main portal vein and hepatic veins. GALLBLADDER: No stones. Normal wall thickness. No pericholecystic fluid. ULTRASOUND-DETECTED NICOLE'S SIGN: Negative. INTRAHEPATIC DUCTS AND COMMON DUCT: CBD and intrahepatic ducts normal caliber. No filling defects. INFERIOR VENA CAVA: Normal flow. AORTA: No aneurysm. RIGHT KIDNEY: Normal size. Normal echogenicity. No solid or suspicious masses. Stable 2 cm right up per pole renal cortical cyst. No hydronephrosis. No calcifications. PERITONEAL AND RIGHT PLEURAL SPACE: No ascites or effusions. OTHER: No other significant findings. IMPRESSION: NORMAL RIGHT UPPER QUADRANT ULTRASOUND. TECHNICAL DOCUMENTATION: JOB ID: [id number] [employer]- All Rights Reserved
== END ==
LOC: RAD 07:25
PROVIDERS: ATTEND Internal Medicine Gastroenterology
DX: R94.5 Abnormal results of liver function studies (principal); R93.3 Abnormal findings on diagnostic imaging of other parts of digestive tract
CPT/HCPCS: 76705